=== PATIENT | male | born 1955 | race Caucasian/White ===

== ENCOUNTER 2018-10-29 16:45 | Emergency (ER) | payer BC ==
[2018-10-29 17:13] VITALS: BP 128/86; PULSE 69; TEMP 97.6; BMI 26.9
--- NOTE | 2018-10-29 17:13 | PDOC ---
History of Present Illness - General Chief Complaint: Injury Stated Complaint: RIGHT FOOT PAIN Time Seen by Provider: 10/29/18 16:59 History Source: Patient Exam Limitations: No Limitations - History of Present Illness Initial Comments: 10/29/18 17:13 63 YOM hypertension and hypercholesterolemia, cerebral aneurysm s/p clipping presenting with acute onset of right foot pain after waking up from sleep this afternoon. he woke up from his sleep today, felt his right foot was sore, so he stretched it out in different directions. He notes he tripped and fell in lobby of where he lives ~1 week ago and twisted his body and landed on his right knee. No LOC or injuries. Had been able to ambulate during this time. Today, when sx started, having difficulty walking 2/ 2 pain. No meds taken. No h/o arthritis. No gout history. No fever or chills or infection or rash. No paresthesias or weakness. PSH: aneurysm clipping PMH: HTN, HLD, cerebral aneurysm s/p clipping Social: lives with family. No tobacco or etoh or drug use. ROS: MUSCULOSKELETAL: No joint swelling. No neck or back pain. +foot pain. SKIN: no redness or skin changes, no discharge, no rash. No wounds. Hematologic: no easy bruising/bleeding. HEMATOLOGIC/LYMPHATIC: No anemia, easy bruising/bleeding, or history of blood clots. NEUROLOGIC: No weakness, numbness or tingling. Allergic/Immunologic: no allergies All other systems reviewed and negative, or as documented in HPI. PE: General: NAD, well appearing Vascular: 2+ DP pulses symmetric and equal. Back: no midline tenderness, no stepoffs, FROM Focused MSK/Neuro Exam notable for soft compartments, Cap refill <2 sec. Proximal and distal strength 5/5, rail engineer strength 5/5 - equal and symmetric. Plantar flexion and dorsiflexion 5/5. FROM. Sensation grossly intact to light touch. No calf tenderness. No knee tenderness, no laxity on anterior and posterior manipulation. +right medial foot tenderness over deltoid ligaments and navicular bone. Skin: color normal color, warm and well perfused. 10/29/18 18:18 10/29/18 18:24 Past History - Past Medical History Allergies/Adverse Reactions: Allergies Allergy/AdvReac Type Severity Reaction Status Date / Time No Known Allergies Allergy Verified 10/27/14 13:43 Home Medications: Ambulatory Orders Metoprolol Succinate [Toprol Xl] 25 mg PO HS 10/27/14 Naproxen 500 mg PO BID PRN #20 tablet 10/29/18 Simvastatin [Zocor -] 40 mg PO HS 10/29/18 Cardiac Disorders: Yes CVA: Yes COPD: No HTN: Yes Hypercholesterolemia: Yes - Surgical History Neurologic Surgery: Yes (CLIP CEREBRAL ANEURYSM) - Suicide/Smoking/Psychosocial Hx Smoking History: Former smoker Have you smoked in the past 12 months: No If you are a former smoker, when did you quit?: 2004 Information on smoking cessation initiated: No Hx Alcohol Use: No Drug/Substance Use Hx: No *Physical Exam - Vital Signs Last Vital Signs Temp Pulse Resp BP Pulse Ox 97.6 F 69 16 128/86 97 10/29/18 16:56 10/29/18 16:56 10/29/18 16:56 10/29/18 16:56 10/29/18 16:56 Moderate Sedation - Procedure Monitoring Vital Signs: Procedure Monitoring Vital Signs Temperature 97.6 F 10/29/18 16:56 Pulse Rate 69 10/29/18 16:56 Respiratory Rate 16 10/29/18 16:56 Blood Pressure 128/86 10/29/18 16:56 O2 Sat by Pulse Oximetry (%) 97 10/29/18 16:56 ED Treatment Course - RADIOLOGY Radiology Studies Ordered: Category Date Time Status ANKLE & FOOT-RIGHT* [RAD] Stat Radiology 10/29/18 17:00 Ordered Medical Decision Making - Medical Decision Making 10/29/18 18:19 hpi as documented VS wnl DDx. foot sprain, contusion, ligamental injury. fx, gout/ doubt inflammatory or gouty arthritis. doubt septic joint. no skin changes or palp effusion to suggest so Xray right foot with normal alignment, no lisfranc. no acute fx. no joint effusion visualized motrin for pain, NSAID analgesia as needed reassurance provided. RICE therapy. foot boot for comfort, Weight bearing as tolerated. otc analgesia. ortho followup as needed as well as podiatry, which he sees return precautions discussed pt and family verbalized understanding of impression and plan. *DC/Admit/Observation/Transfer Diagnosis at time of Disposition: Right foot pain, Right foot sprain - Discharge Dispostion Disposition: HOME Condition at time of disposition: Good Decision to Admit order: No - Prescriptions Prescriptions: Naproxen 500 mg PO BID PRN #20 tablet PRN Reason: Pain - Referrals Referrals: Eder Calixto MD [Staff Physician] - Markos Vivas MD [Staff Physician] - - Patient Instructions Printed Discharge Instructions: How to Prevent Falls, DI for Foot Pain, DI for Foot Sprain Additional Instructions: you most likely have musculoskeletal strain of your foot from excessive stretching today. no fractures noted with normal joint alignment of your foot and ankle avoid heavy lifting or strenuous activity ambulate as tolerated, you can weight bear as tolerated with the foot brace for comfort. you can use the cane to assist you. rest and take tylenol and/or NSAID as needed, can elevate extremity when you sleep May take ibuprofen/tylenol as needed, over the counter. continue with range of motion exercises. Follow up with primary doctor/specialist services provided as well. orthopedics referrals given, you may also see your standards analyst. - Post Discharge Activity Forms/Work/School Notes: Back to Work
[2018-10-29] MEDS ORDERED: IBUPROFEN 600 MG TABLET (FP) PO ONE ×2 (18:18→18:22)
== END 2018-10-29 18:35 | disposition home or self-care (01) ==
LOC: FER 16:45
DX: M79.671 Pain in right foot (principal); S93.601A Unspecified sprain of right foot, initial encounter; X58.XXXA Exposure to other specified factors, initial encounter; Y93.89 Activity, other specified; Y92.89 Other specified places as the place of occurrence of the external cause
CPT/HCPCS: 73610-TC-RT-FY; 73630-TC-RT-FY; 99282-25